=== PATIENT | female | born 1975 | race Caucasian/White ===

== ENCOUNTER 2017-04-30 17:12 | Emergency (ER) | payer BC, OTHER ==
[2017-04-30 17:27] VITALS: TEMP 97.8
--- NOTE | 2017-04-30 18:02 | C.PDOC ---
History Of Present Illness <Twila Bhatti - Last Filed: 04/30/17 17:44> <Christelle Sims - Last Filed: 04/30/17 18:39> 41 year old female presents to the ER with a complaint of 2 weeks of persistent indigestion. Patient reports she traveled from here to [place] and while she was there she had almost daily nausea, vomiting, and dizziness. Yesterday she came home and since then has had watery nonbloody diarrhea with abdominal cramping. Denies fever, chills, pain at this time, or Hx of similar. (Chritselle Sims) <Twila Bhatti - Last Filed: 04/30/17 17:44> <Christelle Sims - Last Filed: 04/30/17 18:39> Time Seen by Provider: 04/30/17 17:40 Chief Complaint (Nursing): Abdominal Pain Past Medical History - Medical History PMH: Gall Bladder Disease Family History: States: Unknown Family Hx - Social History Hx Alcohol Use: Yes Hx Substance Use: No - Immunization History Hx Tetanus Toxoid Vaccination: No Hx Influenza Vaccination: No Hx Pneumococcal Vaccination: No <Twila Bhatti - Last Filed: 04/30/17 17:44> Vital Signs: Last Vital Signs Temp 97.8 F 04/30/17 17:24 Pulse 79 04/30/17 17:24 Resp 100 H 04/30/17 17:24 BP 110/72 04/30/17 17:24 Pulse Ox 100 04/30/17 18:02 ED Course And Treatment O2 Sat by Pulse Oximetry: 100 <Twila Bhatti - Last Filed: 04/30/17 17:44> - Laboratory Results Result Diagrams: 04/30/17 18:06 04/30/17 18:06 <Christelle Sims - Last Filed: 04/30/17 18:39> Disposition <Twila Bhatti - Last Filed: 04/30/17 17:44> <Christelle Sims - Last Filed: 04/30/17 18:39> - Disposition Forms: [employer] (Georgian)
[2017-04-30 18:13] LABS: HCG,QUALITATIVE URINE NEGATIVE (NEGATIVE)
[2017-04-30] MEDS ORDERED: Sodium Chloride 0.9% 1,000 ML IV ONE (18:15)
[2017-04-30 18:16] LABS: SQUAMOUS EPITHIAL 5 /hpf (0-5); URINE BILIRUBIN NEGATIVE (NEGATIVE); URINE BLOOD 2+ (NEGATIVE); URINE CLARITY Hazy (Clear); URINE COLOR Yellow (YELLOW); URINE GLUCOSE (UA) NORMAL (Normal); URINE LEUKOCYTE ESTERASE TRACE Leu/uL (Negative); URINE PROTEIN NEGATIVE (NEGATIVE)
[2017-04-30 18:17] LABS: BASO % 0.4 % (0.0-2.0); EOS % 1.1 % (0.0-4.0); HEMOGLOBIN 13.3 g/dL (11.0-16.0); LYMPH # 0.9 K/uL (1.0-4.3); LYMPH % 22.6 % (20.0-40.0); MEAN CELL VOLUME 89.6 fL (81.0-99.0); MEAN CORPUSCULAR HEMOGLOBIN 30.2 pg (27.0-31.0); MEAN CORPUSCULAR HGB CONC 33.7 g/dL (33.0-37.0); MEAN PLATELET VOLUME 9.3 fL (7.2-11.7); MONO # 0.2 K/uL (0.0-0.8); NEUT # 2.8 K/uL (1.8-7.0); NEUT % 69.9 % (50.0-75.0); NRBC % 0.1 % (0.0-2.0); RBC 4.41 Mil/uL (3.80-5.20); RED CELL DISTRIBUTION WIDTH 14.8 % (11.5-14.5)
[2017-04-30] MEDS ORDERED: Sodium Chloride 0.9% 1,000 ML ONE (18:25)
[2017-04-30 18:32] LABS: ALB/GLOB RATIO 1.2 (1.0-2.1); ALBUMIN 4.3 g/dL (3.5-5.0); ALT/SGPT 36 U/L (9-52); AST/SGOT 20 U/L (14-36); BLOOD UREA NITROGEN 13 mg/dL (7-17); CALCIUM 8.5 mg/dl (8.6-10.4); GFR AFRICAN-AMERICAN > 60; GFR NON-AFRICAN AMERICAN > 60; LIPASE 57 U/L (23-300)
--- NOTE | 2017-04-30 18:44 | C.PDOC ---
History Of Present Illness 41 year old female presents to the ER with a complaint of 2 weeks of persistent indigestion. Patient reports she traveled from here to [place] and while she was there she had almost daily nausea, vomiting, and dizziness. Yesterday she came home and since then has had watery nonbloody diarrhea with abdominal cramping. Denies fever, chills, pain at this time, or Hx of similar. She denies any sick contacts. Time Seen by Provider: 04/30/17 17:40 Chief Complaint (Nursing): Abdominal Pain History Per: Patient History/Exam Limitations: no limitations Onset/Duration Of Symptoms: Days Quality Of Discomfort: Cramping Associated Symptoms: Nausea, Vomiting, Diarrhea, Other (Dizziness). denies: Fever, Chills Exacerbating Factors: None Alleviating Factors: None Recent travel outside of the [place]: No Abnormal Vaginal Bleeding: No Past Medical History Reviewed: Historical Data, Nursing Documentation, Vital Signs Vital Signs: Last Vital Signs Temp 97.8 F 04/30/17 19:27 Pulse 64 04/30/17 19:27 Resp 18 04/30/17 19:27 BP 112/76 04/30/17 19:27 Pulse Ox 97 04/30/17 19:27 - Medical History PMH: Gall Bladder Disease Family History: States: Unknown Family Hx - Social History Hx Alcohol Use: Yes Hx Substance Use: No - Immunization History Hx Tetanus Toxoid Vaccination: No Hx Influenza Vaccination: No Hx Pneumococcal Vaccination: No Review Of Systems Constitutional: Negative for: Fever, Chills Cardiovascular: Negative for: Chest Pain Respiratory: Negative for: Cough, Shortness of Breath Gastrointestinal: Positive for: Nausea, Vomiting, Abdominal Pain, Diarrhea Genitourinary: Negative for: Dysuria, Hematuria Neurological: Positive for: Dizziness Physical Exam - Physical Exam Appears: Non-toxic, No Acute Distress Skin: Normal Color, Warm, Dry Head: Atraumatic, Normacephalic Eye(s): bilateral: Normal Inspection Oral Mucosa: Moist Chest: Symmetrical, No Tenderness Cardiovascular: Rhythm Regular Respiratory: Normal Breath Sounds, No Rales, No Rhonchi, No Wheezing Gastrointestinal/Abdominal: Bowel Sounds (normal), Soft, No Tenderness, No Distention Neurological/Psych: Oriented x3, Normal Speech ED Course And Treatment - Laboratory Results Result Diagrams: 04/30/17 18:06 04/30/17 18:06 Lab Interpretation: No Acute Changes O2 Sat by Pulse Oximetry: 100 (room air) Pulse Ox Interpretation: Normal Progress Note: Blood work and urinalysis ordered. IV fluids and zofran administered. Reevaluation Time: 19:34 Reassessment Condition: Improved (after IV fluids and po Zofran) Disposition Counseled Patient/Family Regarding: Studies Performed, Diagnosis, Need For Followup, Rx Given - Disposition Referrals: Aidan Millan MD [Staff Provider] - Disposition: HOME/ ROUTINE Disposition Time: 19:34 Condition: IMPROVED Prescriptions: Ondansetron ODT [Zofran ODT] 1 odt PO QID PRN #10 odt PRN Reason: Nausea/Vomiting Instructions: Viral Gastroenteritis Forms: [employer] (Hebrew) Print Language: FRENCH - Clinical Impression Clinical Impression: Gastroenteritis and colitis, viral - Scribe Statement The provider has reviewed the documentation as recorded by the Scribthad Oliver All medical record entries made by the Scribe were at my direction and personally dictated by me. I have reviewed the chart and agree that the record accurately reflects my personal performance of the history, physical exam, medical decision making, and the department course for this patient. I have also personally directed, reviewed, and agree with the discharge instructions and disposition.
[2017-04-30 19:28] VITALS: BP 112/76; PULSE 64; RESP 18
[2017-04-30 19:36] VITALS: O2SAT 100
== END 2017-04-30 20:00 | disposition home or self-care (01) ==
LOC: C.ER 17:12
DX: A08.4 Viral intestinal infection, unspecified (principal)
CPT/HCPCS: 80053; 81001; 83690; 84703; 85025; 96360; 99284; J7040

== ENCOUNTER 2018-06-20 17:36 | Emergency (ER) | payer BC ==
[2018-06-20 17:45] VITALS: BP 118/77; PULSE 62; TEMP 98.3; O2SAT 100
--- NOTE | 2018-06-20 19:55 | C.PDOC ---
History Of Present Illness 42 year old female presents to ED with complaint of left ankle pain for the past 2 weeks. Patient states that the swelling has become worse. She denies taking any pain medication at home. She denies trauma, injury, weakness, or numbness. Time Seen by Provider: 06/20/18 18:18 Chief Complaint (Nursing): Lower Extremity Problem/Injury History Per: Patient History/Exam Limitations: no limitations Onset/Duration Of Symptoms: Other (2 weeks) Current Symptoms Are (Timing): Still Present Past Medical History Reviewed: Historical Data, Nursing Documentation, Vital Signs Vital Signs: Last Vital Signs Temp 98.3 F 06/20/18 17:42 Pulse 62 06/20/18 17:42 Resp 18 06/20/18 17:42 BP 118/77 06/20/18 17:42 Pulse Ox 100 06/20/18 17:42 Primary Care Provider: Aidan Millan - Medical History PMH: Gall Bladder Disease Surgical History: No Surg Hx Family History: States: Unknown Family Hx - Social History Hx Alcohol Use: Yes Hx Substance Use: No - Immunization History Hx Tetanus Toxoid Vaccination: No Hx Influenza Vaccination: No Hx Pneumococcal Vaccination: No Review Of Systems Constitutional: Negative for: Fever, Chills, Weakness Musculoskeletal: Positive for: Leg Pain (left ankle pain ) Neurological: Negative for: Weakness, Numbness Physical Exam - Physical Exam Appears: Well, Non-toxic, No Acute Distress Skin: Normal Color, Warm, Dry Head: Atraumatic, Normacephalic Neck: Normal ROM, Supple Chest: Symmetrical, No Deformity Cardiovascular: Rhythm Regular, No Murmur Respiratory: No Accessory Muscle Use, No Rales, No Rhonchi, No Wheezing Gastrointestinal/Abdominal: Soft, No Tenderness Extremity: Normal ROM, Capillary Refill (<2 seconds), Swelling (lateral malleolar swelling to the left ankle, tender to palpation) Pulses: Left Radial: Normal, Right Radial: Normal Neurological/Psych: Oriented x3, Normal Speech, Normal Cognition, Normal Motor, Normal Sensation ED Course And Treatment O2 Sat by Pulse Oximetry: 100 (in RA) Pulse Ox Interpretation: Normal Medical Decision Making Medical Decision Making: Impression: 42 year old female presents to ED with complaint of left ankle pain for the past 2 weeks Initial Plan: Left ankle x-ray Tylenol PO Eduardo bandage cold compresses air cast Disposition Counseled Patient/Family Regarding: Studies Performed, Diagnosis, Need For Followup, Rx Given - Disposition Referrals: Podiatry Clinic [Outside] [facility] [Outside] Disposition: HOME/ ROUTINE Disposition Time: 19:53 Condition: GOOD Additional Instructions: Llame a la clnica en [facility] o a la clnica de podologa en [place] para ailyn corazon de seguimiento. [place] Tylenol o Ibupofren para el dolor. Eleve el pie cuando sea posible. Compresas fras para pie varias veces al da. Use un vendaje y aire fundido al caminar, Call clinic at [facility] or podiatry Clinic in [place] for follow up appointmnent. Take Tylenol or Ibupofren for pain. Elevate foot when possible. Cold compresses to foot several times a day. Wear eduardo bandage and air cast when walking, Prescriptions: Acetaminophen [Tylenol 325mg tab] 650 mg PO Q4 #50 tab Instructions: Ankle Sprain (DC) Forms: Gen Discharge Inst Thai, [employer] (Thai) Print Language: BENGALI - Clinical Impression Clinical Impression: Left ankle sprain - PA / [employer] / Resident Statement MD/DO has reviewed & agrees with the documentation as recorded. (Sherrell Contreras) - Scribe Statement The provider has reviewed the documentation as recorded by the Scribe (Sherrell Contreras) All medical record entries made by the Scribe were at my direction and personally dictated by me. I have reviewed the chart and agree that the record accurately reflects my personal performance of the history, physical exam, medical decision making, and the department course for this patient. I have also personally directed, reviewed, and agree with the discharge instructions and disposition.
[2018-06-20 20:17] VITALS: RESP 20
--- NOTE | 2018-06-21 12:10 | RAD ---
Date of service: 06/20/2018 PROCEDURE: Left Ankle Radiographs. HISTORY: lat mal swelling COMPARISON: None available. TECHNIQUE: 3 views obtained. FINDINGS: BONES: Normal. No fracture. JOINTS: Normal. No osteoarthritis. Ankle mortise maintained. Talar dome intact SOFT TISSUES: Lateral, posterior soft tissue swelling without distal fibular talar or calcaneal fracture. OTHER FINDINGS: None. IMPRESSION: Soft tissue swelling without acute articular or osseous abnormality. Concordant results with the preliminary interpretation rendered by the emergency department physician procedure.
== END 2018-06-20 20:16 | disposition home or self-care (01) ==
LOC: C.ER 17:36
DX: S93.402A Sprain of unspecified ligament of left ankle, initial encounter (principal); X58.XXXA Exposure to other specified factors, initial encounter